=== PATIENT | female | born 1985 | race Two or more races ===

== ENCOUNTER 2023-12-15 09:29 | Outpatient (CLI) | payer OTHER | END 2023-12-15 09:37 | disposition home or self-care (01) | LOC: SONOGRAMA 09:29 | DX: D25.0 Submucous leiomyoma of uterus (principal) ==

== ENCOUNTER 2024-09-26 06:13 | Inpatient (IN) | payer OTHER ==
[~2024-09-26] VITALS: Ht 157.5 cm; Wt 2.3 kg
[2024-09-26 05:11] VITALS: BP 104/71
[2024-09-26] MEDS ORDERED: CEFAZOLIN SODIUM 1,000 MG VIAL IV SCH ×2 (07:15→12:00)
[2024-09-26] MEDS ORDERED: RINGERS SOLUTION,LACTATED 1,000 ML IV SCH (07:15)
[2024-09-26] MEDS ORDERED: LOVENOX40 MG/0.4 SUBCUTANEO (07:56)
[2024-09-26] MEDS ORDERED: PRENATAL TABLE1 EAC1 PO (07:57)
[2024-09-26] MEDS ORDERED: LEVOTHYROXINE25 MCG PO (07:57)
[2024-09-26] MEDS ORDERED: ERYTHROMYCIN BASE OPHT 1GM EACH TUBE OP ONE (08:00)
[2024-09-26] MEDS ORDERED: OXYTOCIN 10 UNITS/ML VIAL IV ONE (08:00)
[2024-09-26] MEDS ORDERED: CARBOPROST TROMETHAMINE 250 MCG/ML AMPUL IM ONE (09:00)
[2024-09-26] MEDS ORDERED: MEPERIDINE HCL/PF 50 MG,MEPERIDINE HCL/PF 25 MG IM SCH (09:30)
[2024-09-26] MEDS ORDERED: MORPHINE SULFATE 4 MG/ML VIAL IV ONE (10:30)
[2024-09-26] MEDS ORDERED: PROMETHAZINE HCL 25 MG/ML AMPUL IV SCH (12:00)
[2024-09-26 12:30] VITALS: BP 112/70
[2024-09-26 15:47] VITALS: BP 111/59
[2024-09-26 20:11] VITALS: BP 101/61
[2024-09-27 00:44] VITALS: BP 99/62
[2024-09-27 06:41] LABS: HEMATOCRIT 31.8 % (36.0-45.00); HEMOGLOBIN 10.9 g/dL (12.0-15.00); MEAN CELL VOLUME 81.8 fL (80.00-100.00); MEAN CORPUSCULAR HGB CONC 34.2 g/dl (32.0-36.0); PLATELET COUNT 198 K/uL (150-450); RED BLOOD COUNT 3.89 M/uL (4.00-6.00); RED CELL DISTRIBUTION WIDTH 15.3 % (11.5-14.5)
[2024-09-27 07:59] VITALS: BP 110/63
[2024-09-27] MEDS ORDERED: OxyCODONE HCL/APAP UD (PERCOCET) PO SCH (08:15)
[2024-09-27 16:01] VITALS: BP 105/60
[2024-09-28] VITALS: BP 108/70
[2024-09-28 08:42] VITALS: BP 118/72
[2024-09-28] MEDS ORDERED: NAPROXEN 500 MG TABLET PO SCH (10:58)
== END 2024-09-28 14:42 | disposition home or self-care (01) | DRG 788 ==
LOC: LDR 06:13 → OB/GYN 06:13 → O/R 08:16 → OB/GYN 08:59
PROVIDERS: ADMIT Specialist; ATTEND Specialist
PROC: 4A1HXCZ Monitoring of Products of Conception, Cardiac Rate, External Approach (ICD-10-PCS; 2024-09-26)
PROC: 10D00Z1 Extraction of Products of Conception, Low, Open Approach (ICD-10-PCS; principal; 2024-09-26 08:45)
DX: O32.2XX0 Maternal care for transverse and oblique lie, not applicable or unspecified (principal); O42.02 Full-term premature rupture of membranes, onset of labor within 24 hours of rupture; O69.81X0 Labor and delivery complicated by cord around neck, without compression, not applicable or unspecified; Z3A.37 37 weeks gestation of pregnancy; Z37.0 Single live birth; Z20.822 Contact with and (suspected) exposure to COVID-19